=== PATIENT | male | born 1970 | race Caucasian/White ===

== ENCOUNTER 2022-08-24 08:18 | Day surgery (SDC) | payer OTHER ==
[~2022-08-24] VITALS: Ht 177.8 cm; Wt 86.2 kg
[2022-08-24] MEDS ORDERED: MIDAZOLAM 5 MG/5 ML VIAL ONE (10:06)
[2022-08-24] MEDS ORDERED: LIDOCAINE 2% 100 MG/5 ML UJET TP ONE (10:06)
[2022-08-24] MEDS ORDERED: fentaNYL citrate 0.05 MG/ML VIAL ONE (10:06)
== END 2022-08-24 12:32 | disposition home or self-care (01) ==
LOC: MDS 08:18 → MMU 08:19 → MDS 12:32
PROVIDERS: ATTEND Internal Medicine Gastroenterology
DX: Z12.11 Encounter for screening for malignant neoplasm of colon (principal); K57.30 Diverticulosis of large intestine without perforation or abscess without bleeding; K21.9 Gastro-esophageal reflux disease without esophagitis; K29.70 Gastritis, unspecified, without bleeding; K22.70 Barrett's esophagus without dysplasia; K44.9 Diaphragmatic hernia without obstruction or gangrene; I10 Essential (primary) hypertension; Z20.822 Contact with and (suspected) exposure to COVID-19
CPT/HCPCS: 36415; 43239; 45378; 86677; 87426; 88305; 88313; J2250; J3010; J7030